=== PATIENT | male | born 1980 | race Caucasian/White ===

== ENCOUNTER 2017-08-15 14:03 | Emergency (ER) | payer SELFPAY ==
[~2017-08-15] VITALS: Ht 167.6 cm; Wt 71.7 kg
[2017-08-15 16:50] VITALS: Ht 167.6 cm; Wt 71.7 kg
[2017-08-15 18:13] LABS: CARBON DIOXIDE 28.6 mmol/L (21-32); CHLORIDE SERUM 101 mmol/L (98-107); GFR1 > 60 mL/min; GLUCOSE SERUM 104 mg/dL (74-106); POTASSIUM SERUM 3.5 mmol/L (3.5-5.1); SODIUM SERUM 141 mmol/L (136-145)
[2017-08-15 18:14] LABS: BASOPHIL % 0.3 % (0-2); PLATELET COUNT 385 x10^3mcL (130-400); RED CELL DISTRIBUTION WIDTH 13.9 % (11.5-14.5)
[2017-08-15 18:18] LABS: ALBUMIN 3.9 g/dL (3.4-5.0); ALKALINE PHOSPHATASE 151 U/L (46-116); ALT/SGPT 94 U/L (16-63); AMYLASE 68 U/L (25-115); AST/SGOT 45 U/L (15-37); BILIRUBIN TOTAL 0.8 mg/dL (0.20-1.00); LIPASE 136 IU/L (73-393); TOTAL PROTEIN, SERUM 8.5 g/dL (6.4-8.2)
[2017-08-15 21:08] VITALS: BP 127/76
== END 2017-08-15 21:08 | disposition home or self-care (01) ==
LOC: ED 14:03
PROVIDERS: Emergency Medicine
DX: B34.9 Viral infection, unspecified (principal); B08.5 Enteroviral vesicular pharyngitis
CPT/HCPCS: 83880; C9113; J2405; J2765; J7030